=== PATIENT | female | born 1965 | race Asian ===

== ENCOUNTER → 2017-07-13 | Outpatient (CLI) | payer MEDICAID | LOC: CIMAGING 09:01 | PROVIDERS: ATTEND Family Medicine | DX: Z12.31 Encounter for screening mammogram for malignant neoplasm of breast (principal); N83.209 Unspecified ovarian cyst, unspecified side | CPT/HCPCS: 76856-PO; G0202 ==

== ENCOUNTER → 2017-10-12 | Outpatient (CLI) | payer MEDICAID | LOC: CIMAGING 10:09 | PROVIDERS: ATTEND Family Medicine | DX: K87 Disorders of gallbladder, biliary tract and pancreas in diseases classified elsewhere (principal); D72.819 Decreased white blood cell count, unspecified; R74.8 Abnormal levels of other serum enzymes | CPT/HCPCS: 76700-PO ==

== ENCOUNTER → 2018-06-05 | Outpatient (CLI) | payer MEDICAID | LOC: CIMAGING 09:05 | PROVIDERS: ATTEND Internal Medicine | DX: B18.1 Chronic viral hepatitis B without delta-agent (principal); K76.0 Fatty (change of) liver, not elsewhere classified; K83.8 Other specified diseases of biliary tract | CPT/HCPCS: 76700-PO ==

== ENCOUNTER → 2018-06-16 | Outpatient (CLI) | payer MEDICAID | LOC: FIMAGING 10:26 | PROVIDERS: ATTEND Internal Medicine | DX: B18.1 Chronic viral hepatitis B without delta-agent (principal); K83.8 Other specified diseases of biliary tract; R93.2 Abnormal findings on diagnostic imaging of liver and biliary tract ==

== ENCOUNTER → 2018-08-21 | Outpatient (CLI) | payer MEDICAID | LOC: CIMAGING 10:10 | PROVIDERS: ATTEND Family Medicine | DX: Z12.31 Encounter for screening mammogram for malignant neoplasm of breast (principal) ==

== ENCOUNTER → 2018-11-19 | Outpatient (CLI) | payer MEDICAID | LOC: CIMAGING 10:20 | PROVIDERS: ATTEND Internal Medicine | DX: B18.1 Chronic viral hepatitis B without delta-agent (principal); K76.0 Fatty (change of) liver, not elsewhere classified | CPT/HCPCS: 76700-PO ==